=== PATIENT | male | born 1995 | race Caucasian/White ===

== ENCOUNTER 2017-11-21 15:39 | Emergency (ER) | payer BC ==
[2017-11-21 15:50] VITALS: BP 158/104
[2017-11-21] MEDS ORDERED: PROPOFOL(*)1000 MG/100 ML VIAL 100 ML IV PRN (15:55)
--- NOTE | 2017-11-21 15:58 | ER Report ---
History and Physical Time Seen By MD: 15:50 HPI/ROS CHIEF COMPLAINT: Left shoulder pain HISTORY OF PRESENT ILLNESS: Otherwise healthy 22-year-old male comes emergency with a complaint of left shoulder pain was snowboarding and fell of the shoulder popped out of socket last and it reduced on the slopes they refused brought here for evaluation of head or neck trauma no loss of consciousness pain is the left shoulder some radiation to the left upper extremity otherwise unremarkable REVIEW OF SYSTEMS: Respiratory: No cough, no dyspnea. Cardiovascular: No chest pain, no palpitations. Gastrointestinal: No vomiting, no abdominal pain. Musculoskeletal: Left shoulder pain Remainder of the 14 system rev: Yes Allergies: Coded Allergies: No Known Drug Allergies (Unverified , 11/21/17) Home Meds No Active Prescriptions or Reported Meds Reviewed Nurses Notes: Yes Old Medical Records Reviewed: Yes Constitutional Vital Sign - Last 24 Hours 11/21/17 15:50 Temp 98.0 Pulse 86 Resp 18 B/P (MAP) 158/104 Pulse Ox 95 O2 Delivery Room Air Physical Exam General appearance: [Alert no distress.] Respiratory: Chest is non tender, lungs are clear to auscultation. Cardiac: Regular rate and rhythm [ ] Left shoulder examination examination left shoulder demonstrates a step-off at the shoulder mortise consistent with a probable anterior dislocation neurovascularly intact patient's holding the shoulder neutral position bend forward for pain relief patient neurovascularly intact otherwise unremarkable exam DIFFERENTIAL DIAGNOSIS: After history and physical exam differential diagnosis was considered for shoulder dislocation versus fracture dislocation Medical Decision Making ED Course/Re-evaluation ED Course ED clinical course 22-year-old male with an obvious dislocated shoulder from an x-ray Procedural note conscious sedation was performed Propofol was utilized total of 12 mL administered 4 mL followed by doses of 2 mL consecutively until such time as conscious sedation was obtained traction and countertraction was implemented with good reduction repeat x-ray confirms fractures without dislocation or subluxation Patient awoke on monitor the entire time on supplement oxygen and no time was his saturations below 94% awoke without issue sling was placed patient will be discharged referral to orthopedics Decision to Disposition Date: Nov 21, 2017 Decision to Disposition Time: 16:33 Depart Departure Latest Vital Signs Vital Signs Date Time Temp Pulse Resp B/P (MAP) Pulse Ox O2 Delivery O2 Flow Rate FiO2 11/21/17 15:50 98.0 86 18 158/104 95 Room Air Impression: Primary Impression: Dislocated shoulder Condition: Improved Disposition: HOME OR SELF-CARE Referrals: GERMÁN BALES MD 5 Days New Scripts No Active Prescriptions or Reported Meds Patient Instructions: Shoulder Dislocation (DC) ARA MCKNIGHT MD Nov 21, 2017 15:58
[2017-11-21] MEDS ORDERED: fentaNYL CITR 100 MCG/2 ML AMP IVP ONE (16:00)
[2017-11-21] MEDS ORDERED: PROPOFOL EMUL(*) 10MG/ML 20 ML 20 ML ONE (16:01)
--- NOTE | 2017-11-21 16:35 | RADIOLOGY IMAGING REPORT ---
FACILITY: [facility] [place] PATIENT NAME: Jag Ochoa : 1995 MR: [id number] V: [id number] EXAM DATE: ORDERING PHYSICIAN: ARA MCKNIGHT TECHNOLOGIST: Location: [facility] - [place] Patient: Jag Ochoa : 1995 Visit/Account:[id number] Date of Sevice: 11/21/2017 SHOULDER MIN 2 VIEWS LEFT HISTORY: dislocation COMPARISON: None FINDINGS: Left shoulder: Anterior-inferior glenohumeral dislocation. No discrete Bankart fragment. The acromioc lavicular joint is normal in appearance. IMPRESSION: 1. Anterior-inferior glenohumeral dislocation. Report Dictated By: Kenny Zamarripa MD at 11/21/2017 4:29 PM Report E-Signed By: Kenny Zamarripa MD at 11/21/2017 4:30 PM WSN:[id number]
[2017-11-21] MEDS ORDERED: PROPOFOL EMUL 10MG/ML 20 ML VL IVP ONE (16:45)
--- NOTE | 2017-11-21 16:45 | RADIOLOGY IMAGING REPORT ---
[facility] PATIENT NAME: Jag Ochoa : 1995 MR: [id number] V: [id number] EXAM DATE: ORDERING PHYSICIAN: ARA MCKNIGHT TECHNOLOGIST: Location: [facility] [place] Patient: Jag Ochoa : 1995 Visit/Account:[id number] Date of Sevice: 11/21/2017 SHOULDER MIN 2 VIEWS LEFT Indication: Post reduction. Comparison: X-ray done earlier in the day. Findings: 2 views of the left shoulder. The previous dislocation of the left humeral head has been reduced. Thi s appears anatomic. No discrete fractures are identified. No bony lesions. Soft tissues are unremarka ble. IMPRESSION: 1. Reduction of the previous left shoulder dislocation. No discrete fracture. Report Dictated By: Jeff Robin at 11/21/2017 4:38 PM Report E-Signed By: Jeff Robin at 11/21/2017 4:42 PM WSN:[id number]
== END 2017-11-21 16:50 | disposition home or self-care (01) ==
LOC: ER 15:45
DX: S43.005A Unspecified dislocation of left shoulder joint, initial encounter (principal); Y93.23 Activity, snow (alpine) (downhill) skiing, snowboarding, sledding, tobogganing and snow tubing
CPT/HCPCS: 23650; 73030; 96374; 96375; 99283; A4565; J2704; J3010